=== PATIENT | female | born 1975 | race Caucasian/White ===

== ENCOUNTER 2025-02-08 17:00 | Inpatient (IN) | payer MEDICAID ==
[~2025-02-08] VITALS: Ht 152.4 cm; Wt 88.2 kg
[~2025-02-08 17:00] MED LIST: HYDR50TA65 PO; PROP10TA10 PO
[2025-02-08] MEDS ORDERED: docusate sod 100mg capsule PO PRN (17:40)
[2025-02-08] MEDS ORDERED: magnesium Cl slow-release 64mg tablet PO PRN (17:40)
[2025-02-08] MEDS ORDERED: potassium Cl 40MEQ/1/2NS 520ml 520 ML IV PRN (17:40)
[2025-02-08] MEDS ORDERED: magnesium sulf-water 2g/50mL 50 ML IV PRN (17:40)
[2025-02-08] MEDS ORDERED: acetaminophen 325mg tablet PO PRN (17:40)
[2025-02-08] MEDS ORDERED: ondansetron/PF 4mg/2ml inj IV PRN (17:40)
[2025-02-08] MEDS ORDERED: potassium Cl 20 mEq SR tablet PO PRN ×2 (17:40)
[2025-02-08] MEDS ORDERED: magnesium sulf-water 4G/100mL 100 ML IV PRN (17:40)
[2025-02-08] MEDS ORDERED: morphine 2 MG/ML inj. syringe IV PRN ×2 (17:40)
[2025-02-08] MEDS ORDERED: magnesium hydroxide 30ml (MOM) UD suspension PO PRN (17:40)
[2025-02-08] MEDS ORDERED: mag hydrox/Alum hydrox/simeth 30ml oral suspension PO PRN (17:40)
[2025-02-08 18:06] VITALS: BP 166/102; PULSE 76; RESP 18; TEMP 98.3; O2SAT 99
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
--- NOTE | 2025-02-08 19:26 | RADIOLOGY REPORT ---
CHEST RADIOGRAPH Indication: baseline Technique: Single frontal view of the chest was obtained Comparison: None FINDINGS: The cardiac silhouette is unremarkable. The lungs demonstrate no pulmonary airspace consolidation. Th e pulmonary vasculature is unremarkable. There is no pleural effusion.. There is no pneumothorax. IMPRESSION: 1. No pulmonary airspace consolidation.
[2025-02-08] MEDS: K and/or MAG REPLACEMENT MC SCH (20:00)
[2025-02-08] MEDS: pantoprazole 40mg Tablet.DR PO SCH (21:32)
[2025-02-08] MEDS: heparin, porcine 5000 units/ml vial SQ SCH (21:32)
[2025-02-08 22:00] VITALS: BP 184/102; PULSE 66; RESP 18; TEMP 98.2; O2SAT 95
[2025-02-08 23:19] LABS: BASOPHILS # (AUTO) 0.1 X10'3 (0-0.2); BASOPHILS % (AUTO) 0.3 % (0-1); EOSINOPHILS # (AUTO) 0.2 X10'3 (0-0.9); EOSINOPHILS % (AUTO) 0.9 % (0-6); LYMPHOCYTES # (AUTO) 3.7 X10'3 (1.1-4.8); LYMPHOCYTES % (AUTO) 21.4 % (21-51); MONOCYTES # (AUTO) 1.5 X10'3 (0-0.9); MONOCYTES % (AUTO) 8.5 % (2-12); NEUTROPHILS # (AUTO) 11.8 X10'3 (1.8-7.7); NEUTROPHILS % (AUTO) 68.9 % (42-75)
[2025-02-08 23:33] LABS: HEMATOCRIT 32.3 % (35.0-45.0); HEMOGLOBIN 10.2 g/dl (12.0-16.0); MEAN CORPUSCULAR HEMOGLOBIN 19.5 PG (27.0-31.0); MEAN CORPUSCULAR HGB CONC 31.5 g/dL (33.0-36.5); MEAN CORPUSCULAR VOLUME 62.1 FL (78-98); RED CELL DISTRIBUTION WIDTH 17.9 % (11.5-14.5); WHITE BLOOD COUNT 17.1 X10'3 (4.5-11.0)
[2025-02-08 23:34] LABS: MEAN PLATELET VOLUME 7.8 FL (7.4-10.4); PLATELET COUNT 378 X10'3 (140-440)
[2025-02-08 23:39] LABS: ALANINE AMINOTRANSFERASE 47 U/L (12-78); ALBUMIN 3.7 G/DL (3.4-5.0); ALBUMIN/GLOBULIN RATIO 0.9 (1.1-1.5); ALKALINE PHOSPHATASE 101 IU/L (46-116); ANION GAP 10 (8-16); ASPARTATE AMINO TRANSFERASE 32 U/L (10-37); BILIRUBIN,TOTAL 0.5 MG/DL (0.1-1.0); BLOOD UREA NITROGEN 11 MG/DL (7-18); BUN/CREATININE RATIO 14.3 (10.0-20.0); CALCIUM 9.1 MG/DL (8.5-10.1); CHLORIDE 102 MMOL/L (99-107); CREATININE 0.77 MG/DL (0.40-0.90); GLUCOSE 107 MG/DL (70-104); POTASSIUM 3.8 MMOL/L (3.5-5.1); SODIUM 137 MMOL/L (135-145); TOTAL CARBON DIOXIDE 24.6 MMOL/L (24-32); TOTAL PROTEIN 7.8 G/DL (6.4-8.2); eCRCL 63 ML/MIN; eGFR 80 ML/MIN
[2025-02-08 23:43] LABS: ANISOCYTOSIS 1+; APTT 23 SECONDS (22-32); INR 1.1 INR; PLATELET ESTIMATE NORMAL; PROTHROMBIN TIME 10.8 SECONDS (9.0-12.0)
[2025-02-08 23:44] LABS: HYPOCHROMASIA 1+; MAGNESIUM 2.2 MG/DL (1.5-2.4); MICROCYTOSIS 2+; PHOSPHORUS 3.5 MG/DL (2.3-4.5); THYROID STIMULATING HORMONE 1.93 ulU/ml (0.34-4.50)
[2025-02-09 00:38] LABS: HCG SERUM QL NEGATIVE
[2025-02-09 01:35] VITALS: BP 143/87; PULSE 75
[2025-02-09 01:46] LABS: BILIRUBIN,URINE NEGATIVE (Neg); CLARITY,URINE CLEAR (Clear); COLOR,URINE YELLOW (Yellow); GLUCOSE, URINE NEGATIVE (Neg); KETONES,URINE NEGATIVE (Neg); LEUKOCYTE ESTERASE ,URINE NEGATIVE (Neg); NITRITES, URINE NEGATIVE (Neg); OCCULT BLOOD,URINE NEGATIVE (Neg); PH,URINE 6.5 (4.8-8.0); PROTEIN,URINE NEGATIVE (Neg); UROBILINOGEN,URINE 0.2 E.U/dL (0.2-1.0)
[2025-02-09 01:56] LABS: UA COLLECTION TYPE URINAL
[2025-02-09 05:25] LABS: BASOPHILS # (AUTO) 0.1 X10'3 (0-0.2); BASOPHILS % (AUTO) 0.5 % (0-1); EOSINOPHILS # (AUTO) 0.1 X10'3 (0-0.9); EOSINOPHILS % (AUTO) 0.8 % (0-6); HEMOGLOBIN 10.3 g/dl (12.0-16.0); LYMPHOCYTES # (AUTO) 2.9 X10'3 (1.1-4.8); MEAN PLATELET VOLUME 8.1 FL (7.4-10.4); MONOCYTES # (AUTO) 1.5 X10'3 (0-0.9); MONOCYTES % (AUTO) 9.1 % (2-12); NEUTROPHILS # (AUTO) 11.4 X10'3 (1.8-7.7); NEUTROPHILS % (AUTO) 71.6 % (42-75); PLATELET COUNT 373 X10'3 (140-440); WHITE BLOOD COUNT 15.9 X10'3 (4.5-11.0)
[2025-02-09 05:42] LABS: ALANINE AMINOTRANSFERASE 48 U/L (12-78); ALBUMIN 3.6 G/DL (3.4-5.0); ALBUMIN/GLOBULIN RATIO 0.9 (1.1-1.5); ALKALINE PHOSPHATASE 98 IU/L (46-116); ANION GAP 9 (8-16); ASPARTATE AMINO TRANSFERASE 31 U/L (10-37); BILIRUBIN,TOTAL 0.5 MG/DL (0.1-1.0); BLOOD UREA NITROGEN 10 MG/DL (7-18); BUN/CREATININE RATIO 11.5 (10.0-20.0); CHLORIDE 103 MMOL/L (99-107); CREATININE 0.87 MG/DL (0.40-0.90); GLUCOSE 102 MG/DL (70-104); MAGNESIUM 2.3 MG/DL (1.5-2.4); POTASSIUM 4.1 MMOL/L (3.5-5.1); SODIUM 140 MMOL/L (135-145); TOTAL CARBON DIOXIDE 28.4 MMOL/L (24-32); TOTAL PROTEIN 7.7 G/DL (6.4-8.2); eCRCL 56 ML/MIN; eGFR 69 ML/MIN
[2025-02-09 05:44] LABS: HEMATOCRIT 33.3 % (35.0-45.0); MEAN CORPUSCULAR HEMOGLOBIN 19.6 PG (27.0-31.0); MEAN CORPUSCULAR HGB CONC 31.1 g/dL (33.0-36.5); MEAN CORPUSCULAR VOLUME 62.9 FL (78-98); RED BLOOD COUNT 5.29 X10'6 (4.20-5.60)
[2025-02-09 06:00] VITALS: BP 147/86; PULSE 72; RESP 16; TEMP 96.6; O2SAT 99
[2025-02-09] MEDS: atorvastatin 20mg tablet PO SCH (08:48)
[2025-02-09] MEDS: CefTRIAXone/D5W-Rocephin 1gm 50 ML IV SCH (09:55)
[2025-02-09 10:00] VITALS: BP 156/96; PULSE 91; RESP 18; TEMP 97.5; O2SAT 97
--- NOTE | 2025-02-09 12:03 | PROGRESS NOTE ---
Progress Note ID Providers to CC ~ Progress Note Progress Note: pt denies pain/hida neg/ct pending GUERITA MEJIA MD Feb 09, 2025 12:03
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
[2025-02-09] MEDS: diatr meglu/diatrizoate 30ml oral sol.-(3 dose) bottle PO SCH (20:36)
[2025-02-09] MEDS: hydrOXYzine 25 MG tablet PO SCH (20:37)
[2025-02-09] MEDS: propranolol 10mg tablet PO SCH (20:38)
[2025-02-09] MEDS ORDERED: morphine 4 MG/ML inj SYRINge IV PRN ×2 (20:59→21:00)
[2025-02-09 22:00] VITALS: BP 162/99; PULSE 88; RESP 18; TEMP 97.8; O2SAT 96
[2025-02-10 06:03] LABS: BASOPHILS # (AUTO) 0.1 X10'3 (0-0.2); BASOPHILS % (AUTO) 0.6 % (0-1); EOSINOPHILS # (AUTO) 0.1 X10'3 (0-0.9); EOSINOPHILS % (AUTO) 1.2 % (0-6); HEMATOCRIT 33.7 % (35.0-45.0); HEMOGLOBIN 9.9 g/dl (12.0-16.0); LYMPHOCYTES % (AUTO) 23.8 % (21-51); MEAN CORPUSCULAR HEMOGLOBIN 18.7 PG (27.0-31.0); MEAN CORPUSCULAR HGB CONC 29.4 g/dL (33.0-36.5); MEAN CORPUSCULAR VOLUME 63.6 FL (78-98); MEAN PLATELET VOLUME 8.8 FL (7.4-10.4); MONOCYTES # (AUTO) 1.3 X10'3 (0-0.9); MONOCYTES % (AUTO) 10.3 % (2-12); NEUTROPHILS % (AUTO) 64.1 % (42-75); PLATELET COUNT 341 X10'3 (140-440); RED CELL DISTRIBUTION WIDTH 18.7 % (11.5-14.5); WHITE BLOOD COUNT 12.4 X10'3 (4.5-11.0)
[2025-02-10 06:13] LABS: ALANINE AMINOTRANSFERASE 61 U/L (12-78); ALBUMIN 3.4 G/DL (3.4-5.0); ALBUMIN/GLOBULIN RATIO 0.9 (1.1-1.5); ALKALINE PHOSPHATASE 103 IU/L (46-116); ANION GAP 9 (8-16); ASPARTATE AMINO TRANSFERASE 33 U/L (10-37); BILIRUBIN,TOTAL 0.5 MG/DL (0.1-1.0); BLOOD UREA NITROGEN 11 MG/DL (7-18); BUN/CREATININE RATIO 12.1 (10.0-20.0); CALCIUM 8.9 MG/DL (8.5-10.1); CHLORIDE 103 MMOL/L (99-107); CREATININE 0.91 MG/DL (0.40-0.90); GLUCOSE 93 MG/DL (70-104); MAGNESIUM 2.1 MG/DL (1.5-2.4); POTASSIUM 3.8 MMOL/L (3.5-5.1); SODIUM 138 MMOL/L (135-145); TOTAL CARBON DIOXIDE 26.4 MMOL/L (24-32); TOTAL PROTEIN 7.4 G/DL (6.4-8.2); eCRCL 54 ML/MIN; eGFR 66 ML/MIN
[2025-02-10 06:51] LABS: PLATELET ESTIMATE NORMAL
[2025-02-10 06:52] LABS: ANISOCYTOSIS 2+; HYPOCHROMASIA 2+; MICROCYTOSIS 2+; POLYCHROMASIA 1+
[2025-02-10 07:16] VITALS: BP 128/80; PULSE 62; RESP 12; TEMP 97.4; O2SAT 97
[2025-02-10] MEDS ORDERED: iohexol 300mg/ml 100ml inj. ONE (10:02)
[2025-02-10 10:39] LABS: LIPASE 25 U/L (16-77)
[2025-02-10 11:00] VITALS: BP 149/88; PULSE 75; RESP 16; TEMP 97.7; O2SAT 94
--- NOTE | 2025-02-10 14:00 | RADIOLOGY REPORT ---
CT CT ABDOMEN PELVIS W/ IV ORAL CONTRAST INDICATION: pain EXAM DATE: 02/10/2025 10:53 AM COMPARISON: None RADIATION DOSE: CTDIvol: 33 mGy, DLP: 1551 mGy*cm PROCEDURE: Helical CT images were obtained of the abdomen and pelvis with IV contrast Sagittal and co adolfo reconstructions are provided. ORAL CONTRAST: yes ADDITIONAL IMAGES / REFORMATS: None All CT sca ns at this medical facility are performed using dose modulation techniques as appropriate to a perfor med exam including the following: Automated exposure control was utilized; adjustment of the MA and/o r KV according to patient size; and use of iterative reconstruction technique. FINDINGS: LUNG BASE: Normal. LIVER: Normal. GALLBLADDER AND BILIARY TREE: Gallstones. No intra- or extrahepatic biliary ductal dilation. PANCREAS: Normal. SPLEEN: Normal. BOWEL: Oral contrast material reaches the descending colon. No bowel dilation. Normal appendix. ADRENALS: Normal. KIDNEYS AND URETER: Normal. BLADDER: Normal. REPRODUCTIVE ORGANS: Normal. LYMPH NODES:No lymphadenopathy. PERITONEUM: No ascites or free air. No other fluid collection. VESSELS: Scattered atherosclerotic calcifications are noted. RETROPERITONEUM: Normal. ABDOMINAL WALL: Normal. BONES: Scattered osseous degenerative changes are noted. IMPRESSION: No acute intraabdominal abnormality. Cholelithiasis.
--- NOTE | 2025-02-10 16:19 | PROGRESS NOTE ---
Progress Note ID Providers to CC ~ Progress Note Progress Note: GUERITA Hanna am, MD Feb 10, 2025 16:19
[2025-02-10 18:30] VITALS: BP 149/89; PULSE 86; RESP 18; TEMP 98; O2SAT 96
--- NOTE | 2025-02-10 19:00 | PROGRESS NOTE- Residence ---
Progress Note - Resident Providers to CC Resident Creating Document: SHANIA HARRISON MARNIURKASCARLETT, RES ~ Antibiotic Timeout Antibiotic Ordered?: Yes Subjective The patient was seen and examined at bedside today. Patient had an episode of postprandial abdominal pain yesterday. No episodes of vomiting. CT abdomen positive for cholelithiasis. Patient going for cholecystectomy tomorrow. Objective Vital Signs Date Time Temp Pulse Resp B/P (MAP) Pulse Ox O2 Delivery O2 Flow Rate FiO2 02/10/25 11:00 97.7 75 16 149/88 (108) 94 Room Air Result Diagram: 02/10/25 0512 02/10/25 05 Adult female, A&O x4, not in acute distress Head: Normocephalic with an atraumatic Eyes: Pupils- 3mm, reacting to light, conjunctiva- anicteric Nose and throat: No polyps, septum- normal, no mucosal ulcers Neck: Supple, no lymphadenopathy, no carotid bruit Respiratory: No use of accessory muscles of respiration, Bilateral normal vesiscular breath sounds heard. No wheeze, rhochi or creps Cardiac: S1-S2 heard, rythm regular, no gallop/murmur Abdomen: non distended, mild LUQ and epigastric abdominal tenderness, no organomegaly, bowel sounds - heard Extremities: no clubbing, no pedal edema, no deformities, peripheral pulses - 2+ Skin: warm and dry, no rash, no purpura Neuro: No focal deficit, gross cranial nerve exam - normal Coagulation Studies Laboratory Tests Test 02/08/25 23:05 Prothrombin Time 10.8 SECONDS (9.0-12.0) INR International Normalized Ratio 1.1 INR Activated Partial Thromboplast Time 23 SECONDS (22-32) Coagulation Comments Assessment Assessment A 49 years old female who is admitted to the [facility] unit for gravely disable and DUI because last Tuesday was her daughter 4th year anniversary date found to have the acute on chronic intermittent right upper abd pain and occasional left upper abdominal pain along with nausea vomiting and fever with a past medical history of cystitis, and polysubstance abuse. Plan Plan Cholelithiasis Acute cholecystitis, can not be ruled out CT abdomen today showed cholelithiasis and no cholecystitis. HIDA scan showed gallbladder dyskinesia with no features of acute cholecystitis. Dr. Wright is following the patient and is taking her for cholecystectomy tomorrow. NPO from midnight and management as per Dr. Wright. Mixed hyperlipidemia -elevated triglyceride 138 and LDL with 124 -started PO Atorvastatin 20 mg and will consider to titrate up as patient tolerated # Gravely disabled # DUI # Bipolar disorder and anxiety 1798 daily. Patient has a sitter at bedside. She will be evaluated by [facility] tomorrow after discharge. CODE STATUS: Full code DVT prophylaxis: Sc heparin 5000 units b.i.d. Analgesia/sedation: Acetaminophen/ IV morphine as needed Lines/tubes: Peripheral IV GI prophylaxis: Protonix Nutrition: NPO after midnight Prognosis: Guarded Disposition: Continue care in medical floor. Cholecystectomy in a.m. by Dr. Wright. Shania Harrison MD Internal Medicine Resident, PGY-1 Date of Service: Feb 10, 2025 Billing Provider: MARLA BRICEÑO MD Common Visit Codes: [id number] INP/OBS CARE(HIGH) SHANIA HARRISON, RES Feb 10, 2025 19:00 MARLA BRICEÑO MD Feb 13, 2025 15:54
[2025-02-10 20:20] VITALS: RESP 18
--- NOTE | 2025-02-10 20:24 | ELECTROCARDIOGRAPH REPORT ---
[facility] Test Date: 2025-02-10 Test Time: 20:22:27 Pat Name: ABEBA JUAREZ Department: [facility] 3N [id number] Room: [place] [address] Gender: F Visitor Services Associate: : 1975 Requested By: GUERITA MEJIA Order Number: [id number] Reading MD: Dr. Rickey Lyles Measurements Intervals [place] Rate: 88 P: 40 NM: 147 QRS: 42 QRSD: 94 T: 8 QT: 364 QTc: 441 Interpretive Statements Sinus rhythm Low voltage, precordial leads Borderline T abnormalities, anterior leads Electronically Signed On 02-12-2025 8:10:[address] Rickey Lyles Please click the below link to view image of tracing.
[2025-02-10 22:00] VITALS: BP 122/69; PULSE 68; RESP 14; TEMP 97.6; O2SAT 92
[2025-02-11] VITALS (24 sets, daily range): BP systolic 101–183; BP diastolic 58–116; PULSE 62–90; RESP 12–38; TEMP 96.6–97.9; O2SAT 90–99
[2025-02-11 06:34] LABS: BASOPHILS # (AUTO) 0.1 X10'3 (0-0.2); BASOPHILS % (AUTO) 0.6 % (0-1); EOSINOPHILS # (AUTO) 0.1 X10'3 (0-0.9); EOSINOPHILS % (AUTO) 0.7 % (0-6); HEMATOCRIT 33.4 % (35.0-45.0); HEMOGLOBIN 9.8 g/dl (12.0-16.0); LYMPHOCYTES # (AUTO) 2.4 X10'3 (1.1-4.8); LYMPHOCYTES % (AUTO) 20.3 % (21-51); MEAN CORPUSCULAR HEMOGLOBIN 18.7 PG (27.0-31.0); MEAN CORPUSCULAR HGB CONC 29.4 g/dL (33.0-36.5); MEAN CORPUSCULAR VOLUME 63.6 FL (78-98); MEAN PLATELET VOLUME 8.3 FL (7.4-10.4); MONOCYTES # (AUTO) 1.1 X10'3 (0-0.9); MONOCYTES % (AUTO) 9.5 % (2-12); NEUTROPHILS # (AUTO) 8.2 X10'3 (1.8-7.7); NEUTROPHILS % (AUTO) 68.9 % (42-75); PLATELET COUNT 336 X10'3 (140-440); RED BLOOD COUNT 5.25 X10'6 (4.20-5.60); RED CELL DISTRIBUTION WIDTH 18.7 % (11.5-14.5); WHITE BLOOD COUNT 11.9 X10'3 (4.5-11.0)
[2025-02-11 06:44] LABS: PROTHROMBIN TIME 10.3 SECONDS (9.0-12.0)
[2025-02-11 06:57] LABS: ALANINE AMINOTRANSFERASE 53 U/L (12-78); ALBUMIN 3.6 G/DL (3.4-5.0); ALBUMIN/GLOBULIN RATIO 0.9 (1.1-1.5); ALKALINE PHOSPHATASE 102 IU/L (46-116); ANION GAP 11 (8-16); ASPARTATE AMINO TRANSFERASE 23 U/L (10-37); BILIRUBIN,TOTAL 0.3 MG/DL (0.1-1.0); BLOOD UREA NITROGEN 12 MG/DL (7-18); BUN/CREATININE RATIO 13.6 (10.0-20.0); CALCIUM 9.1 MG/DL (8.5-10.1); CHLORIDE 104 MMOL/L (99-107); CREATININE 0.88 MG/DL (0.40-0.90); GLUCOSE 98 MG/DL (70-104); MAGNESIUM 2.1 MG/DL (1.5-2.4); SODIUM 141 MMOL/L (135-145); TOTAL PROTEIN 7.6 G/DL (6.4-8.2); eCRCL 56 ML/MIN; eGFR 68 ML/MIN
[2025-02-11] MEDS ORDERED: proCHLORperazine 10 MG/2 ml inj IV PRN ×2 (08:10→11:35)
[2025-02-11] MEDS ORDERED: ondansetron/PF 4mg/2ml inj IV PRN ×3 (08:10→13:10)
[2025-02-11] MEDS: ringers solution, lacted 1,000 ML IV SCH ×2 (08:10→11:35)
[2025-02-11] MEDS ORDERED: enalaprilat 1.25mg/ml 2ml vial IV PRN (08:10)
[2025-02-11] MEDS ORDERED: meperidine/PF 25mg/ml syringe IV PRN ×4 (08:10→11:35)
[2025-02-11] MEDS ORDERED: morphine 2 MG/ML inj. syringe IV PRN ×2 (08:10→11:35)
[2025-02-11] MEDS ORDERED: BUPIVAcaine 2.5mg/ml inj 50ml vial (contains preservative) ONE (11:34)
[2025-02-11] MEDS ORDERED: morphine 4 MG/ML inj SYRINge IV PRN (11:35)
[2025-02-11] MEDS ORDERED: hydrALAZINE 20mg/ml inj. IV PRN (11:35)
[2025-02-11] MEDS ORDERED: labetalol 20mg/4ml (5mg/ml) syringe IV PRN (11:35)
[2025-02-11] MEDS ORDERED: HYDROmorphone/PF 0.2 MG/ML SYRINGE IV PRN ×2 (11:35)
--- NOTE | 2025-02-11 11:40 | PROGRESS NOTE ---
Progress Note ID Providers to CC ~ Progress Note Progress Note: discussed procedure including risks/benefits/alternatives GUERITA MEJIA MD Feb 11, 2025 11:40
[2025-02-11] MEDS ORDERED: sevoflurane 250ml liquid IH ONE (11:45)
[2025-02-11] MEDS ORDERED: midazolam 1 mg/ML 2ml injection ONE (11:56)
[2025-02-11] MEDS ORDERED: rocuronium 10mg/ml inj IV ONE (12:47)
[2025-02-11] MEDS ORDERED: propofol inj 20 ML IV ONE (12:47)
[2025-02-11] MEDS ORDERED: LIDOcaine 2% (20mg/ml) 5ml vial ONE (12:47)
[2025-02-11] MEDS ORDERED: ondansetron/PF 4mg/2ml inj ONE (12:47)
[2025-02-11] MEDS ORDERED: ceFOXitin 1000 MG inj ONE ×2 (12:47)
[2025-02-11] MEDS ORDERED: fentaNYL /PF 50mcg/ml 5ml ampule ONE (12:47)
[2025-02-11] MEDS ORDERED: dexamethasone sod phosphate 4mg/ml inj. ONE (12:47)
[2025-02-11] MEDS ORDERED: neostigmine methylsulfate 1 MG/ML 10ml vial ONE (13:03)
[2025-02-11] MEDS ORDERED: glycopyrrolate 0.2mg/ml inj ONE (13:03)
[2025-02-11] MEDS ORDERED: sugammadex 200mg/2ml injection IV ONE (13:04)
--- NOTE | 2025-02-11 13:06 | OPERATIVE REPORT ---
Operative Report Providers to CC ~ Date of Procedure: Feb 11, 2025 Pre-Operative Diagnosis: symptomatic cholelithiasis Post-Operative Diagnosis SAME as PRE-Op Procedure Performed les antunez Surgeon: carmen Cad Drafter none Anesthesiologist: Lesly Lyles Type of Anesthesia: General Findings: distended gb Estimated Blood Loss: min Specimen Removed: gb GUERITA MEJIA MD Feb 11, 2025 13:06
[2025-02-11] MEDS ORDERED: naloxone 0.4 mg/ml inj IV PRN (13:10)
[2025-02-11] MEDS ORDERED: PCA WASTE DOCUMENTATION 1 MG ML MC SCH (13:10)
[2025-02-11] MEDS: acetaminophen 1,000mg/100ml IV 100 ML IV PRN (13:14)
[2025-02-11] MEDS: labetalol 20mg/4ml (5mg/ml) syringe IV PRN (13:18)
[2025-02-11] MEDS: morphine 4 MG/ML inj SYRINge IV PRN (13:41)
[2025-02-11] MEDS: ketorolac trometh 30MG/ML vial 30 MG/ML VIAL IV PRN (14:29)
[2025-02-11] MEDS: HYDROmorphone inj. 0.5 MG/0.5 ML DISP.SYRIN IV PRN (19:01)
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
--- NOTE | 2025-02-11 20:31 | CONSULTATION ---
DATE OF CONSULTATION: 02/09/2025 DICTATING PHYSICIAN: Mert Wright MD REASON FOR CONSULTATION: Evaluation of abdominal pain. HISTORY OF PRESENT ILLNESS: The patient is a 49-year-old female admitted on 02/08 after being transferred from the mental health unit with complaints of abdominal discomfort. Surgical evaluation is now requested. On further questioning, she has intermittent right upper quadrant pain for some time. Pain associated with fatty foods. Pain has been somewhat diffuse. History of peptic ulcer disease. PAST MEDICAL HISTORY: Notable for ____ substance abuse. PAST SURGICAL HISTORY: . HOME MEDICATIONS: Include Inderal, hydroxyzine. ALLERGIES: None. SOCIAL HISTORY: History of alcohol use. REVIEW OF SYSTEMS: See H and P. PHYSICAL EXAMINATION: GENERAL: Well-nourished female in minimal distress. VITAL SIGNS: Unremarkable. HEART: Regular rate and rhythm. LUNGS: Clear to auscultation. ABDOMEN: Shows minimal ____ with signs of peritonitis. EXTREMITIES: Unremarkable. NEUROLOGIC: Nonfocal. LABORATORY DATA: Labs include a WBC of 15, hematocrit of 33, platelet count 373. Chemistries include essentially normal LFTs. IMAGING STUDIES: HIDA scan revealed no evidence of cystic duct obstruction. IMPRESSION: * Abdominal pain, question etiology. * Substance abuse. RECOMMENDATIONS: CT abdomen and pelvis. Mert Wright MD TID: [id number] RECEIPT: [id number] LETA/YOK/AMI
[2025-02-12 05:13] LABS: ALANINE AMINOTRANSFERASE 58 U/L (12-78); ALBUMIN 3.3 G/DL (3.4-5.0); ALBUMIN/GLOBULIN RATIO 0.8 (1.1-1.5); ALKALINE PHOSPHATASE 98 IU/L (46-116); ANION GAP 9 (8-16); ASPARTATE AMINO TRANSFERASE 38 U/L (10-37); BILIRUBIN,TOTAL 0.4 MG/DL (0.1-1.0); BLOOD UREA NITROGEN 10 MG/DL (7-18); BUN/CREATININE RATIO 10.2 (10.0-20.0); CALCIUM 9.2 MG/DL (8.5-10.1); CHLORIDE 106 MMOL/L (99-107); CREATININE 0.98 MG/DL (0.40-0.90); GLUCOSE 115 MG/DL (70-104); POTASSIUM 4.4 MMOL/L (3.5-5.1); SODIUM 141 MMOL/L (135-145); TOTAL CARBON DIOXIDE 26.1 MMOL/L (24-32); TOTAL PROTEIN 7.3 G/DL (6.4-8.2); eCRCL 50 ML/MIN; eGFR 60 ML/MIN
[2025-02-12 05:18] LABS: HEMATOCRIT 30.3 % (35.0-45.0); HEMOGLOBIN 9.6 g/dl (12.0-16.0); MEAN CORPUSCULAR HEMOGLOBIN 19.7 PG (27.0-31.0); MEAN CORPUSCULAR HGB CONC 31.5 g/dL (33.0-36.5); MEAN CORPUSCULAR VOLUME 62.6 FL (78-98); MEAN PLATELET VOLUME 8.6 FL (7.4-10.4); PLATELET COUNT 346 X10'3 (140-440); RED BLOOD COUNT 4.85 X10'6 (4.20-5.60); WHITE BLOOD COUNT 20.9 X10'3 (4.5-11.0)
[2025-02-12 05:20] LABS: NEUTROPHILS % (AUTO) 86.8 % (42-75)
[2025-02-12 05:21] LABS: BASOPHILS % (AUTO) 0.2 % (0-1); EOSINOPHILS % (AUTO) 0.1 % (0-6); LYMPHOCYTES # (AUTO) 1.5 X10'3 (1.1-4.8); LYMPHOCYTES % (AUTO) 6.7 % (21-51); MONOCYTES # (AUTO) 1.4 X10'3 (0-0.9); MONOCYTES % (AUTO) 6.2 % (2-12); NEUTROPHILS # (AUTO) 19.9 X10'3 (1.8-7.7)
[2025-02-12 05:31] LABS: ANISOCYTOSIS 1+; MICROCYTOSIS 2+; PLATELET ESTIMATE NORMAL
--- NOTE | 2025-02-12 05:56 | OPERATIVE REPORT ---
DATE OF SURGERY: 02/11/2025 DICTATING PHYSICIAN: Mert Wright MD PREOPERATIVE DIAGNOSIS: Cholelithiasis. POSTOPERATIVE DIAGNOSIS: Cholelithiasis. PROCEDURE PERFORMED: Robotic cholecystectomy. SURGEON: Mert Wright MD TRICOT KNITTING MACHINE OPERATOR: None. ANESTHESIA: General/Dr. Lyles. DRAINS: None. INDICATIONS FOR OPERATION: A 49-year-old female with recurrent right upper quadrant pain, , taken to surgery robotic cholecystectomy. INTRAOPERATIVE FINDINGS: Distended gallbladder. DESCRIPTION OF PROCEDURE: The patient was placed supine on the operating table. After induction of general anesthesia and placement of endotracheal tube, the abdomen was prepped and draped. A subumbilical incision was then made and Jer port placed using open technique and pneumoperitoneum was begun by insufflation of CO2. Additional ports were placed in left lower quadrant and right lateral abdomen. Robot was then brought to the field. Camera port docked. Camera placed, camera targeted. Additional ports were then docked and instruments placed. Abdomen was then explored. Gallbladder fundus was grasped and retracted cephalad. Cystic duct identified, isolated, ligated, clipped and divided the cystic artery. The gallbladder was mobilized off the gallbladder fossa using electrocautery. Hemostasis was found to be adequate. Robotic instruments were removed, robot undocked from the field. Gallbladder was placed in Endobag using laparoscope. Abdomen was copiously irrigated with large amount of antibiotic-containing solution. Ports were removed under laparoscopic vision. Final port and camera were removed gallbladder. Wounds were closed in layers. Skin was closed with subcuticular stitch. Dressing was applied. The patient was transferred to recovery in stable condition. Mert Wright MD TID: [id number] RECEIPT: [id number] KB/RENETTA/KUL
[2025-02-12 06:00] VITALS: BP 157/82; PULSE 70; RESP 18; TEMP 97.5; O2SAT 98
[2025-02-12] MEDS: HYDROcodone/acetaminophen 5mg/325mg tablet PO PRN (07:44)
[2025-02-12 08:00] VITALS: RESP 18; O2SAT 98
[2025-02-12 13:12] VITALS: RESP 16
[2025-02-12] MEDS: piperacillin/tazo 3.375gm/50ml 50 ML IV SCH (13:16)
--- NOTE | 2025-02-12 13:54 | PATHOLOGY REPORT ---
[facility] [address] [place] [address] SURGICAL PATHOLOGY REPORT CaseNumber: [id number] Surgeon:Mert Wright M.D. CLINICAL INFORMATION CLINICAL INFORMATION: Acute cholecystitis. DIAGNOSIS DIAGNOSIS: GALLBLADDER, ROBOTIC ASSISTED LAPAROSCOPIC SERGIO - ACUTE CHOLECYSTITIS WITH CHOLELITHIASIS - NO DYSPLASIA OR MALIGNANCY MICROSCOPIC DESCRIPTION MICROSCOPIC DESCRIPTION: Performed. GROSS DESCRIPTION GROSS DESCRIPTION: Received in a container of formalin labeled with the patient's name, number, and " gallbladder" is a disrupted gallbladder which measures 6.5 cm long by 3.5 cm in diameter. The serosa is smooth and purple-funes. The surgical bed is unremarkable. Sectioning reveals a small amount of visc ous dark bile and a 6 cm aggregate of irregularly shaped funes stones which measure up to 1.4 cm. The m ucosa is red and granular. A discrete mass lesion is not identified. The wall of the gallbladder edmundo sures up to 0.4 cm thick. Curtain Stretcher sections of the neck and wall of the gallbladder are submitt ed as A1.The time at which the specimen was removed was 1240. The time at which the specimen was plac ed in formalin was 1250. (meb) Electronically signed by: Miky Alford M.D. 02/12/2025 1:10:00 PM
--- NOTE | 2025-02-12 14:48 | PROGRESS NOTE ---
Progress Note ID Providers to CC ~ Progress Note Progress Note: doing well/ok to dc GUERITA MEJIA MD Feb 12, 2025 14:48
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
[2025-02-12] MEDS ORDERED: PANT40TA54 PO (17:37)
[2025-02-12] MEDS ORDERED: LACT1CAP26 PO (17:37)
[2025-02-12] MEDS ORDERED: ATOR20TA66 PO (17:37)
[2025-02-12] MEDS ORDERED: CEFD300C3 PO (17:37)
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
[2025-02-13] MEDS ORDERED: atorvastatin 20mg tablet PO SCH (08:00)
== END 2025-02-12 19:20 | disposition home or self-care (01) | DRG 263 ==
LOC: UNDOADMIN 17:00 → ORTHO 4S 17:00 → SUR 3N 02-09 21:02
PROVIDERS: ADMIT Family Medicine; ATTEND Family Medicine
PROC: BW211ZZ Computerized Tomography (CT Scan) of Abdomen and Pelvis using Low Osmolar Contrast (ICD-10-PCS; 2025-02-10)
PROC: 8E0W4CZ Robotic Assisted Procedure of Trunk Region, Percutaneous Endoscopic Approach (ICD-10-PCS; 2025-02-11)
PROC: 0FT44ZZ Resection of Gallbladder, Percutaneous Endoscopic Approach (ICD-10-PCS; principal; 2025-02-11 11:47)
DX: K80.00 Calculus of gallbladder with acute cholecystitis without obstruction (principal); E78.2 Mixed hyperlipidemia; F31.9 Bipolar disorder, unspecified; F41.9 Anxiety disorder, unspecified; Z98.891 History of uterine scar from previous surgery; Z79.899 Other long term (current) drug therapy
CPT/HCPCS: 36415; 71045; 74177; 80053; 81003; 82948; 83690; 83735; 84100; 84145; 84443; 84703; 85008; 85025; 85610; 85730; 87081; 93005; A4215; A4615; A4618; A6223; A6402; A7000; G0378; J0131; J0694; J0696; J1100; J1171; J1644; J1885; J2003; J2250; J2270; J2405; J2543; J2704; J2710; J3010; J3490; J7120; Q0177; Q9963; Q9967